=== PATIENT | female | born 1970 | race Two or more races ===

== ENCOUNTER 2017-10-19 10:00 | Outpatient (CLI) | payer OTHER | END 2017-10-19 10:11 | disposition home or self-care (01) | LOC: SONOGRAMA 10:00 → MAMO-SONO 10:15 | DX: Z12.31 Encounter for screening mammogram for malignant neoplasm of breast (principal); N60.11 Diffuse cystic mastopathy of right breast; N60.12 Diffuse cystic mastopathy of left breast ==

== ENCOUNTER 2017-11-03 09:35 | Outpatient (CLI) | payer OTHER | END 2017-11-03 09:56 | disposition home or self-care (01) | LOC: RAD 501 09:35 | DX: M54.5 Low back pain (principal); M54.6 Pain in thoracic spine ==